=== PATIENT | male | born 1990 | race Caucasian/White ===

== ENCOUNTER 2022-01-19 16:42 | Emergency (ER) | payer OTHER ==
[~2022-01-19] VITALS: Ht 188 cm; Wt 127.3 kg
[~2022-01-19 16:42] MED LIST: ADDERALL20 MG PO; LEVAQUIN 750MG750 M1 PO; NO HOME MEDICATIONS
[2022-01-19 17:27] LABS: BASO # 0.1 K/mm3 (0.0-0.2); BASO % 0.5 % (0.0-2.0); EOS % 0.1 % (0.0-4.0); GRAN # 7.5 K/mm3 (1.4-6.5); GRAN % 73.1 % (42.2-75.2); HEMATOCRIT 46.4 % (42.0-52.0); LYMPH # 1.7 K/mm3 (1.2-3.4); LYMPH % 16.9 % (20.0-51.0); MEAN CELL VOLUME 81 fl (80.0-100.0); MEAN CORPUSCULAR HEMOGLOBIN 28 pg (27-31); MEAN CORPUSCULAR HGB CONC 35 g/dl (33.0-37.0); MONO # 0.9 K/mm3 (0.1-0.6); PLATELET COUNT 254 K/mm3 (130-400); REDCELL DISTRIBUTION WIDTH-CV 12.6 % (11.5-14.5)
[2022-01-19 17:53] LABS: ALBUMIN 3.3 gm/dL (3.5-5.0); BILIRUBIN,TOTAL 0.6 mg/dL (0.2-1.2); CREATININE, serum 1.15 mg/dL (0.72-1.25); POTASSIUM 3.5 mmol/L (3.5-4.5); TOTAL PROTEIN 7.3 gm/dL (6.2-8.1)
[2022-01-19 18:48] VITALS: TEMP 99.2
[2022-01-19 19:08] VITALS: BP 137/78; PULSE 89
== END 2022-01-19 19:04 | disposition home or self-care (01) ==
LOC: COL.ER 16:42
PROVIDERS: Physician Assistant
DX: B34.9 Viral infection, unspecified (principal); Z20.822 Contact with and (suspected) exposure to COVID-19; Z28.310 Unvaccinated for COVID-19
CPT/HCPCS: J7030

== ENCOUNTER 2022-01-21 22:06 | Inpatient (IN) | payer OTHER ==
[~2022-01-21] VITALS: Ht 188 cm; Wt 130.9 kg
[2022-01-21 22:56] LABS: COLLECTION METHOD CLEAN CATCH
[2022-01-21 22:59] LABS: BASO # 0.1 K/mm3 (0.0-0.2); BASO % 0.6 % (0.0-2.0); GRAN # 7.2 K/mm3 (1.4-6.5); GRAN % 66.6 % (42.2-75.2); HEMOGLOBIN 15.7 g/dl (13.5-18.0); LYMPH # 2.2 K/mm3 (1.2-3.4); LYMPH % 20.5 % (20.0-51.0); MEAN CELL VOLUME 80 fl (80.0-100.0); MEAN CORPUSCULAR HEMOGLOBIN 28 pg (27-31); MEAN CORPUSCULAR HGB CONC 35 g/dl (33.0-37.0); MEAN PLATELET VOLUME 10.1 fl (7.4-10.4); MONO # 1.2 K/mm3 (0.1-0.6); MONO % 11.3 % (1.7-9.3); PLATELET COUNT 324 K/mm3 (130-400); RED BLOOD COUNT 5.61 M/mm3 (4.20-5.60); REDCELL DISTRIBUTION WIDTH-CV 12.6 % (11.5-14.5)
[2022-01-21 23:03] LABS: MUCOUS Present (NOT PRESENT); PH 5 (5-8); SQUAMOUS EPITHELIAL None Seen /hpf (0-10); URINE APPEARANCE Hazy (CLEAR/HAZY); URINE BACTERIA None Seen /hpf (NONE SEEN); URINE BLOOD 2+ (NEGATIVE); URINE COLOR Amber (YELLOW); URINE GLUCOSE Negative (NEGATIVE); URINE KETONE Negative (NEGATIVE); URINE NITRATE Negative (NEGATIVE); URINE PROTEIN(semi-quant) 2+ (NEGATIVE); URINE UROBILINOGEN >=4.0 (NEGATIVE)
[2022-01-21 23:20] LABS: ALBUMIN 2.9 gm/dL (3.5-5.0); BILIRUBIN,TOTAL 0.6 mg/dL (0.2-1.2); CALCIUM 8.8 mg/dL (8.4-10.2); CREATININE, serum 1.07 mg/dL (0.72-1.25); POTASSIUM 3.4 mmol/L (3.5-4.5); TOTAL PROTEIN 7.1 gm/dL (6.2-8.1)
[2022-01-22] MEDS ORDERED: ADDERALL20 MG PO (01:30)
[2022-01-22] MEDS ORDERED: WELLBUTRIN XL300 M1 PO (01:30)
[2022-01-22 17:46] VITALS: BP 129/73; PULSE 93; TEMP 98.3
--- NOTE | 2022-01-22 18:13 | NUR ---
Assessment completed, alert/oriented, vital signs stable, reports some discomfort with deep breathing, lungs CTA/ disminished in RLL, heart RRR/distal pulses are palpable, no peripheral edema noted, CXR shows right sided PNA and some pericardial effusion, reports cought and fatigue with dyspnea with little exertion that has gotten worse over the last week or so, meds/allergies/pharmacy reviewed with patient, his mother was present at bedside and is in records for emergency contact, patient denies other needs at this time
[2022-01-22 20:04] VITALS: BP 135/78; PULSE 91; TEMP 98.6
[2022-01-23] VITALS (7 sets, daily range): BP systolic 126–153; BP diastolic 59–79; PULSE 72–92; TEMP 97.3–98.2
--- NOTE | 2022-01-23 02:31 | NUR ---
TX GIVEN VIA MOUTHPIECE, TOLERATED WELL. PT ON ROOM AIR BEFORE AND AFTER TX.
--- NOTE | 2022-01-23 05:40 | NUR ---
ASSESSMENT COMPLETE FOR PRIOR AUTHORIZATION TECHNICIAN. PT RESTING IN BED NAPPING. PT COMPLAINED OF BODY ACHES. PT GETTING SCHEDULED MOTRIN. MOTRIN WORKING WELL FOR PT. PT DENIED CHEST PAIN, PALPITATIONS, SOB, N,V,D OR DIZZINESS. CALL LIGHT WITHIN REACH.
[2022-01-23 06:55] LABS: BASO % 0.3 % (0.0-2.0); GRAN # 12.3 K/mm3 (1.4-6.5); GRAN % 81.9 % (42.2-75.2); HEMATOCRIT 40.3 % (42.0-52.0); LYMPH # 1.8 K/mm3 (1.2-3.4); LYMPH % 12.1 % (20.0-51.0); MEAN CELL VOLUME 81 fl (80.0-100.0); MEAN CORPUSCULAR HEMOGLOBIN 28 pg (27-31); MEAN CORPUSCULAR HGB CONC 35 g/dl (33.0-37.0); MEAN PLATELET VOLUME 10.6 fl (7.4-10.4); MONO # 0.7 K/mm3 (0.1-0.6); MONO % 4.7 % (1.7-9.3); PLATELET COUNT 342 K/mm3 (130-400)
[2022-01-23 07:08] LABS: CALCIUM 8.7 mg/dL (8.4-10.2); CREATININE, serum 0.74 mg/dL (0.72-1.25); POTASSIUM 3.2 mmol/L (3.5-4.5)
--- NOTE | 2022-01-23 09:10 | NUR ---
Initial visit; Patient thanked [employer] for looking in on him and offering God's blessings and to keep him in her prayers.
--- NOTE | 2022-01-23 10:17 | NUR ---
PT RESTING IN BED. MORNING MEDICATIONS GIVEN. SHIFT ASSESSMENT COMPLETED. PT DENIES FEELING SOB OR HAVING ANY PAIN. A COUGH NOTED WITH DEEP BREATHING, PT STATES IT HAS BEEN MOSTLY NON PRODUCTIVE. PT DENIES ANY NEEDS AT THIS TIME. NS INFUSING AT 125ML/HR. WILL CONTINUE TO MONITOR.
[2022-01-24 04:27] VITALS: BP 138/58; PULSE 81; TEMP 98.1
[2022-01-24 07:18] LABS: HEMATOCRIT 37.9 % (42.0-52.0); MEAN CELL VOLUME 82 fl (80.0-100.0); MEAN CORPUSCULAR HEMOGLOBIN 28 pg (27-31); MEAN CORPUSCULAR HGB CONC 34 g/dl (33.0-37.0); MEAN PLATELET VOLUME 10.5 fl (7.4-10.4); PLATELET COUNT 399 K/mm3 (130-400); RED BLOOD COUNT 4.65 M/mm3 (4.20-5.60); REDCELL DISTRIBUTION WIDTH-CV 13.3 % (11.5-14.5)
[2022-01-24 07:29] VITALS: BP 143/69; PULSE 82; TEMP 98.1
[2022-01-24 07:34] LABS: CALCIUM 8.4 mg/dL (8.4-10.2); CREATININE, serum 0.73 mg/dL (0.72-1.25); POTASSIUM 3.5 mmol/L (3.5-4.5)
--- NOTE | 2022-01-24 07:34 | NUR ---
IVF TO INT DURING THE NOC, PT EATING AND DRINKING WELL, NO N/V, VOIDING W/O DIFFICULTY. AFEBRILE, MOTRIN CHANGED TO PRN, UP AD ANY IN ROOM.
[2022-01-24 08:10] LABS: BAND 10 % (0-10); LYMPHOCYTE 9 % (20.0-51.0); METAMYELOCYTE 1 % (0-0); NEUTROPHILS 77 % (42.0-75.2); PLATELET ESTIMATE NORMAL (NORMAL)
--- NOTE | 2022-01-24 08:30 | NUR ---
Patient is resting in bed, alert and orientedx4, some HTN. He complained of some cough at night. Telemetry in place, NSR. Assessment completed, meds provided. No other needs at this time. Call light within reach.
--- NOTE | 2022-01-24 08:30 | NUR ---
[employer] met with patient to complete intake and discuss discharge plan. Patient's mother Estefanía ([phone]) and father Reuben ([phone]) present at bedside. Patient reports that he lives in [place] at home alone. He is independent with his ADL's and does not utilize any DME to assist with mobility. Patient has no home oxygen needs. Patient's PCP is Dr. Gomez and he [facility] for prescriptions. Patient is not and has no children. His established legal next of kin is his parents. Patient is planning on returning home once medically ready. Patient expressed needing no help upon discharge and has no concerns with returning home. Discharge plan: Home
[2022-01-24] MEDS ORDERED: OMNICEF 300MG300 MG PO (09:17)
[2022-01-24] MEDS ORDERED: PREDNISONE20 MG PO (09:18)
[2022-01-24 12:11] VITALS: BP 125/63; PULSE 81; TEMP 98.1
--- NOTE | 2022-01-24 12:37 | NUR ---
Patient was provided with discharge information. IV access and telemetry was discontinued. All questions answered.
== END 2022-01-24 12:59 | disposition home or self-care (01) | DRG 871 ==
LOC: COL.ER 22:06 → MEDICAL 01-22 15:54
PROVIDERS: Family Medicine; Student in an Organized Health Care Education/Training Program; ADMIT Family Medicine
DX: A41.9 Sepsis, unspecified organism (principal); J18.9 Pneumonia, unspecified organism; J45.901 Unspecified asthma with (acute) exacerbation; E87.1 Hypo-osmolality and hyponatremia; F90.9 Attention-deficit hyperactivity disorder, unspecified type; F32.A Depression, unspecified; E87.6 Hypokalemia; R82.81 Pyuria; R03.0 Elevated blood-pressure reading, without diagnosis of hypertension; E66.9 Obesity, unspecified; R74.01 Elevation of levels of liver transaminase levels; Z20.822 Contact with and (suspected) exposure to COVID-19; Z88.1 Allergy status to other antibiotic agents; Z88.0 Allergy status to penicillin; Z68.36 Body mass index [BMI] 36.0-36.9, adult
CPT/HCPCS: 99223-AI; J0696; J1650; J2405; J2920; J3480; J7030; Q9967

== ENCOUNTER 2024-03-22 10:15 | Emergency (ER) | payer SELFPAY ==
[~2024-03-22] VITALS: Ht 188 cm; Wt 97.3 kg
[~2024-03-22 10:15] MED LIST changes: +OMNICEF 300MG300 MG PO; +PREDNISONE20 MG PO; +WELLBUTRIN XL300 M1 PO
[2024-03-22 10:20] VITALS: BP 150/90; TEMP 98.4
[2024-03-22] MEDS ORDERED: CLEOCIN HCL300 MG PO (12:11)
[2024-03-22] MEDS ORDERED: NORCO 325 MG-51 TAB PO (12:11)
[2024-03-22 12:20] VITALS: PULSE 88
== END 2024-03-22 12:20 | disposition home or self-care (01) ==
LOC: COL.ER 10:15
DX: S02.2XXA Fracture of nasal bones, initial encounter for closed fracture (principal); W01.198A Fall on same level from slipping, tripping and stumbling with subsequent striking against other object, initial encounter